=== PATIENT | male | born 1965 | race African-American/Black ===

== ENCOUNTER → 2017-01-17 | Outpatient (CLI) | payer MEDICAID ==
[~2017-01-17] MED LIST: AC325T; AC500T; ACET325T49 PO; ALB0.5V; ALBU0.8322 IH; ALBU17AE23 IH; ALBU2.5V4; CLN.2T; CLN.2T PO; FERR-57; FLT22013 INH; FLVX50T; FRS325T; GLBR2.5T; INSA10V; INSU100C SQ; INSU100I10 SQ; INSU100V13; INSU100V6; INSU100V8; LEVO500T69 PO; LISI-594 PO; LNS30CCR; LNS30CCR PO; LUVOX; METF-380 PO; MPR22T TP; MTF500TCR; MTP25TSR PO; PGLT30T; QTP100T PO; QTP200T; RIOMET; RISP1TAB19 PO; VALP250S14 PO; VLP250480; Z-PAK
--- NOTE | 2017-01-17 09:55 | Diagnostic Imaging Report ---
3 views of the left shoulder. INDICATION: Left shoulder pain. FINDINGS: There is no fracture, dislocation or radiopaque foreign body. The acromioclavicular and the glenohumeral joints appear unremarkable. The shoulder orientation appears to be rotated superiorly and laterally, which appears to be secondary to the position of the scapula. Correlate clinically. IMPRESSION: No fracture seen. Superior and lateral rotated position of the scapula is seen. Dictated by: Dictated on workstation # [id number]
--- NOTE | 2017-01-17 09:58 | Diagnostic Imaging Report ---
EXAMINATION: Two views of the left humerus. INDICATION: Pain. FINDINGS: There is a focal ossification measuring 4 mm which appears to have corticated margins near the rotator cuff insertion. This could be secondary to rotator cuff tendinopathy or injury. No acute fracture is seen otherwise in the humerus. No subluxation or dislocation. IMPRESSION: 4 mm ossification near the rotator cuff insertion may relate to rotator cuff tendinopathy or sequela of rotator cuff injury. This could be better evaluated with a shoulder MRI, if needed. Dictated by: Dictated on workstation # [id number]
--- NOTE | 2017-01-17 10:08 | Diagnostic Imaging Report ---
2 views of the left clavicle. INDICATION: Pain around the left clavicle. FINDINGS: There is no fracture, dislocation or radiopaque foreign body. There is apparent slight rotation superiorly and laterally of the scapula and shoulder. It is uncertain if this is positional or related to a deformity. Correlate clinically. IMPRESSION: No fracture seen. Dictated by: Dictated on workstation # [id number]
== END ==
LOC: RAD 09:21
PROVIDERS: ATTEND Family Medicine
DX: M25.512 Pain in left shoulder (principal); M25.812 Other specified joint disorders, left shoulder
CPT/HCPCS: 73000; 73030; 73060

== ENCOUNTER → 2017-08-16 | Outpatient (CLI) | payer MEDICARE, MEDICAID ==
[~2017-08-16] VITALS: Ht 162.6 cm; Wt 81.6 kg
[~2017-08-16] MED LIST changes: +REGADENOSON 0.4 MG/5 ML SYR (LEXISCAN) IV ONE
[2017-08-16] MEDS: CATHETER FLUSH 10 ML SYR IV PRN ×2 (08:55→09:45)
[2017-08-16 09:42] VITALS: BP 173/102
--- NOTE | 2017-08-16 21:25 | STRESS TEST ---
DATE OF SERVICE: 08/16/2017 PHARMACOLOGICAL NUCLEAR STRESS TEST REPORT PRIMARY PHYSICIAN: Therese Villalpando M.D. DIAGNOSES: Diabetes, hypertension, mental retardation, hyperlipidemia. PROCEDURE DETAILS: The patient was brought to the stress lab after informed consent was taken. Please note that this patient also has significant mental retardation. Therefore, he could not cooperate during nuclear imaging by keeping his arms above his head. Lexiscan nuclear stress test was performed. A 0.4 mg of Lexiscan was given. The patient had normal sinus rhythm on baseline EKG. Blood pressure was 149/108 mmHg. Maximum heart rate was 155 BPM and blood pressure was 179/87 mmHg. The patient did not complain of any obvious chest pain. There were no arrhythmias or EKG changes. 10.34 mCi of Myoview were given for rest imaging and 29.6 mCi of Myoview were given for stress imaging. As noted earlier, the patient kept his arms on the side; therefore, the images were not of the greatest quality. TID 0.9, EF 82%. There is a mild mid anterior reversible defect noted. Normal wall motion is noted. IMPRESSION/CONCLUSION: 1. Pharmacological stress test was negative for ischemia. 2. There is a mild mid anterior reversible defect noted. Although there are no significant wall motion abnormalities, clinical correlation is recommended. Job ID: [id number] DocumentID: [id number] Dictated Date: 08/16/2017 14:07:46 Sample Case Porter Date: 08/16/2017 15:14:36 Dictated By: KARELY GREENFIELD MD
== END ==
LOC: CARD 08:40
PROVIDERS: ATTEND Internal Medicine Interventional Cardiology
DX: E13.9 Other specified diabetes mellitus without complications (principal); E78.5 Hyperlipidemia, unspecified; I10 Essential (primary) hypertension; F79 Unspecified intellectual disabilities; D64.9 Anemia, unspecified
CPT/HCPCS: 78452; 93017

== ENCOUNTER 2018-05-03 13:56 | Emergency (ER) | payer MEDICARE, MEDICAID ==
[~2018-05-03] VITALS: Ht 157.5 cm; Wt 77.1 kg
[~2018-05-03 13:56] MED LIST changes: -REGADENOSON 0.4 MG/5 ML SYR (LEXISCAN) IV ONE
[2018-05-03] MEDS ORDERED: CATHETER FLUSH 10 ML SYR IV ONE (13:58)
[2018-05-03] MEDS ORDERED: EPINEPHrine 0.1 MG/ML 10 ML (HOSPIRA) SYR INJ ONE (13:58)
--- NOTE | 2018-05-03 14:18 | ED CPR ---
HPI-CPR General Chief Complaint: Code Blue Stated Complaint: CODE BLUE Source of Information: EMS History of Present Illness Date Seen by Provider: May 03, 2018 Time Seen by Provider: 14:13 Initial Comments This is a 52-year-old male presents after cardiac arrest. EMS was called and the patient was found to be in PEA. Despite all ACLS drugs the patient failed to respond and was transported to the emergency department. The patient suffers from Down syndrome and diabetes. Patient's blood sugar in the field was 140. The patient was not directly observed at the time he rested but other people in the house heard him fall to the floor and activated EMS. Allergies and Home Medications Allergies Coded Allergies: NKANo Known Allergies (Verified Allergy, Unknown, 08/11/06) Uncoded Allergies: NKA (Allergy, Mild, 08/11/06) Home Medications Acetaminophen 325 Mg Tab, 325 MG PO EVERY 6-8 HOURS PRN, (Reported) NEEDED FOR PAIN Albuterol Sulfate 2.5 Mg/3 Ml Solution, 2.5 MG IH 3-4 TIMES DAILY PRN, (Reported ) NEEDED FOR ASTHMA Clonidine Hcl 0.2 Mg Tablet, 0.2 MG PO TID, (Reported) Fluticasone Propionate 1 Ea Aero, 2 PUFF INH BID, (Reported) Insulin Glargine,Hum.rec.anlog 300 Unit/3 Ml Insuln.pen, 22 UNITS SQ HS, ( Reported) Insulin Lispro 100 Unit/1 Ml Cartridge, 5 UNITS SQ TID, (Reported) BEFORE MEALS Lansoprazole 30 Mg Cap, 30 MG PO DAILY, (Reported) 30 MINUTES BEFORE BREAKFAST Levofloxacin 500 Mg Tab, 1 EACH PO DAILY, (Reported) Lisinopril 5 Mg Tablet, 5 MG PO HS, (Reported) Metformin Hcl 1,000 Mg Tablet, 1,000 MG PO BID, (Reported) Metoprolol Succinate 25 Mg Tab, 25 MG PO DAILY, (Reported) Mupirocin 22 Gm Tube, TP BID, (Reported) APPLY TO BLISTERS ON THIGHS Quetiapine Fumarate 100 Mg Tablet, 100 MG PO BID, (Reported) Risperidone 1 Mg Tablet, 1 MG PO BID, (Reported) Valproic Acid 250 Mg/5 Ml Syrup, 22 ML PO TID, (Reported) Patient Home Medication List Home Medication List Reviewed: Yes Review of Systems Constitutional: no symptoms reported EENTM: No Symptoms Reported Respiratory: No Symptoms Reported Cardiovascular: No Symptoms Reported Gastrointestinal: No Symptoms Reported Genitourinary: No Symptoms Reported Musculoskeletal: no symptoms reported Skin: no symptoms reported Psychiatric/Neurological: No Symptoms Reported Endocrine: No Symptoms Reported Hematologic/Lymphatic: No Symptoms Reported Past Ujzsikl-Nzibfw-Qotwba Hx Past Med/Social Hx: Reviewed Nursing Past Med/Soc Hx Immunizations Up To Date Date of Pneumonia Vaccine: Jun 12, 2013 Date of Influenza Vaccine: Jun 16, 2013 Seasonal Allergies Seasonal Allergies: Yes Past Medical History Asthma Reproductive Disorders: No Diabetes, Insulin dep Physical Exam Vital Signs Capillary Refill : Height, Weight, BMI Height: 5'4.00" Weight: 180lbs. 0.0oz. 81.869519vd; 30.9 BMI Method: General Appearance: Other (the patient is in cardiac arrest) HEENT: Normal ENT Inspection, Other (an endotracheal tube is in place.) Neck: Normal Inspection Respiratory: Other (with bagging the patient's lungs are clear.) Cardiovascular: Other (no heartbeat was auscultated.) Gastrointestinal: Other (patient's abdomen was distended from bagging.) Extremity: Normal Inspection Neurologic/Psychiatric: Other (patient is unresponsive to pain or verbal stimuli) Skin: Normal Color, Warm/Dry Progress/Results/Core Measures Progress Progress Note : Time: 14:17 Progress Note The patient was in PEA and received an amp of epinephrine. Chest compressions and ventilations continued. Ultrasound of the patient's heart demonstrated no active cardiac activity despite a slow wide complex on hall monitor. After a all attempts at resuscitation were ineffective the patient was pronounced at 1359. Dr. Alexander call the emergency department and stated that she would sign best to get. Departure Impression Primary Impression: Cardiac arrest Disposition: 20 Condition: Departure-Patient Inst. Referrals: KAREL CARBAJAL MD (PCP/Family) Primary Care Physician ABNER CHEN MD May 03, 2018 14:18
--- OUTSIDE RECORDS SUMMARY | 2018-05-03 19:05 | XMS REPORT | Continuity of Care Document ---
Author Author [facility] Organization [facility] Address Unknown Phone Unavailable Care Team Providers Care Transfer Specialist Name Role Phone ELYSIA FRY DO PP Insurance Providers Payer Name Policy Number Subscriber Name [facility] [id number] Tyler Culver Self / Same As Patient Advance Directives Directive Response Recorded Date Advance Directives N 06/10/13 11:15pm Organ Donor Y 06/10/13 11:15pm Problems No Known Problems or Medical conditions. Social History History Response Recorded Date/Time Alcohol Use Denies Use 06/10/13 11:15pm Recreational Drug Use N 06/10/13 11:15pm Allergies, Adverse Reactions, Alerts Allergen Type Severity Reaction Last Updated NKANo Known Allergies Allergy Unknown 08/11/06 NKA Allergy Mild 08/11/06 Medications Medication Dose Units Route Sig Qty Days Levofloxacin (Levaquin 500 Mg) 1 Each PO DAILY 5 Metformin HCl (Metformin 1000 Mg) 1000 Mg PO BID Lisinopril (Zestril) 5 Mg PO HS Insulin Glargine (Lantus Solostar) 22 Units SQ HS Quetiapine Fumarate (Seroquel 100 Mg) 100 Mg PO BID Mupirocin (Bactroban Ointment 22 Gm) TP BID Fluticasone Propionate (Flovent Hfa 220 Mcg) 2 Puff INH BID Albuterol Sulfate (Proventil 2.5 Mg/3 Ml Ns) 2.5 Mg IH 3-4 TIMES DAILY PRN Acetaminophen (Tylenol Tab) 325 Mg PO EVERY 6-8 HOURS PRN Valproic Acid 22 Ml PO TID Lansoprazole (Prevacid) 30 Mg PO DAILY Insulin Lispro (Humalog) 5 Units SQ TID Risperidone (Risperdal) 1 Mg PO BID Metoprolol Succinate (Toprol Xl) 25 Mg PO DAILY Clonidine HCl (Catapres) 0.2 Mg PO TID Ferrous Sulfate Insulin Regular, Human (Novolin R) [Riomet] Immunizations Name Given Type Date of Pneumonia Vaccine 06/12/13 H Date of Influenza Vaccine 06/16/13 H pneumococcal polysaccharide PPV23 06/12/13 A influenza, split (incl. purified surface antigen) 06/12/13 A pneumococcal polysaccharide PPV23 06/12/13 A influenza, split (incl. purified surface antigen) 06/12/13 A Response Recorded Date/Time Status not known Unknown Results Test Date Result Interp. Ref. Range Activated Partial Thromboplast Time August 28, 2006 10: 47am 28 SEC N 24-35 Alanine Aminotransferase (ALT/SGPT) June 10, 2013 7: 58pm 39 U/L N 30-65 Albumin June 10, 2013 7:58pm 2.3 G/ DL L 3.4-5.0 Alkaline Phosphatase June 10, 2013 7:58pm 144 U/L H 50-136 Carlos Alberto Test June 10, 2013 8:26pm POSITIVE - Anisocytosis June 10, 2013 7:58pm SLIGHT - Arterial Blood Base Excess June 10, 2013 8:26pm -2.8 MMOL/L L -2.5-2.5 Arterial Blood HCO3 June 10, 2013 8:26pm 22 MMOL/L L 23-27 Arterial Blood Oxygen Saturation June 10, 2013 8:26pm 92 % L 94-100 Arterial Blood Partial Pressure CO2 June 10, 2013 8: 26pm 41 MMHG N 35-45 Arterial Blood Partial Pressure O2 June 10, 2013 8: 26pm 68 MMHG L 79-93 Arterial Blood Total CO2 June 10, 2013 8:26pm 23.4 MMOL/L N 21.0-31.0 Arterial Blood pH June 10, 2013 8:26pm 7.36 L 7.37-7.43 Aspartate Amino Transf (AST/SGOT) June 10, 2013 7:58pm 29 U/L N 15-37 Atypical Lymphocytes June 10, 2013 7:58pm 0 % - BUN/Creatinine Ratio June 10, 2013 7:58pm 15 - Band Neutrophils June 10, 2013 7:58pm 6 % - Basophils # (Auto) June 10, 2013 7:58pm 0.0 10^3/uL N 0.0-0.1 Basophils % (Manual) June 10, 2013 7:58pm 0 % - Basophils (%) (Auto) June 10, 2013 7:58pm 0 % N 0-10 Blood Gas Inspired Oxygen June 10, 2013 8:26pm 2L - Blood Gas Patient Temperature June 10, 2013 8:26pm 100.4 - Blood Gas Puncture Site June 10, 2013 8:26pm RIGHT RADIAL - Blood Gas Ventilator Setting June 10, 2013 8:26pm NO - Blood Urea Nitrogen June 10, 2013 7:58pm 20 MG/DL H 7-18 C-Reactive Protein June 10, 2013 7:58pm 1.5 MG/DL H 0.2-0.9 C-Reactive Protein, Quantitative August 10, 2006 10:45pm 0.7 MG/DL - Calcium Level June 10, 2013 7:58pm 7.9 MG/DL L 8.5-10.1 Carbon Dioxide Level June 10, 2013 7:58pm 26 MMOL/L N 21-32 Chloride Level June 10, 2013 7:58pm 103 MMOL/L N 101-110 Cholesterol Level September 04, 2006 5:34am 147 MG/DL N -200 Creatinine June 10, 2013 7:58pm 1.3 MG/DL N 0.6-1.3 D-Dimer March 26, 2009 12:55pm 0.90 UG/ ML H 0.00-0.49 Elliptocytes August 18, 2006 7:00am Slight - Eosinophils # (Auto) June 10, 2013 7:58pm 0.0 10^3/uL N 0.0-0.3 Eosinophils % (Manual) June 10, 2013 7:58pm 0 % - Eosinophils (%) (Auto) June 10, 2013 7:58pm 0 % N 0-10 Erythrocyte Sedimentation Rate August 10, 2006 10:45pm 97 MM/HR H 0-15 Glucose Level June 10, 2013 7:58pm 254 MG/DL H 74-106 HDL Cholesterol September 04, 2006 5:34am 26 MG/ML L 35-60 Hematocrit June 10, 2013 7:58pm 40 % N 40-54 Hemoglobin June 10, 2013 7:58pm 13.0 G/DL L 13.3-17.7 Hemoglobin A1c November 27, 2009 6:30am 7.8 H % - Hypochromasia June 10, 2013 7:58pm SLIGHT - LDL Cholesterol September 04, 2006 5:34am 103 MG/DL N 0-129 Lymphocytes # (Auto) June 10, 2013 7:58pm 2.1 X 10^3 N 1.0-4.0 Lymphocytes % (Manual) June 10, 2013 7:58pm 28 % - Lymphocytes (%) (Auto) June 10, 2013 7:58pm 18 % N 12-44 Macrocytosis November 26, 2006 6:25am Slight - Magnesium Level June 10, 2013 7:58pm 1.2 MG/DL L 1.8-2.4 Mean Corpuscular Hemoglobin June 10, 2013 7:58pm 25 PG N 25-34 Mean Corpuscular Hemoglobin Concent June 10, 2013 7: 58pm 33 G/DL N 32-36 Mean Corpuscular Volume June 10, 2013 7:58pm 77 FL L 80-99 Mean Platelet Volume June 10, 2013 7:58pm 10.9 FL H 7.4-10.4 Metamyelocytes % November 26, 2006 6:25am 3 - Microcytosis June 10, 2013 7:58pm SLIGHT - Monocytes # (Auto) June 10, 2013 7:58pm 2.3 X 10^3 H 0.0-1.0 Monocytes % (Manual) June 10, 2013 7:58pm 4 % - Monocytes (%) (Auto) June 10, 2013 7:58pm 19 % H 0-12 Myelocytes % November 26, 2006 6:25am 1 - Myoglobin March 26, 2009 12:55pm 25 UG/L N 10-92 Neutrophils # (Auto) June 10, 2013 7:58pm 7.4 X 10^3 N 1.8-7.8 Neutrophils % (Manual) June 10, 2013 7:58pm 57 % - Neutrophils (%) (Auto) June 10, 2013 7:58pm 63 % N 42-75 Nucleated Red Blood Cells June 10, 2013 7:58pm 1 - Platelet Count June 10, 2013 7:58pm 154 10^3/uL N 130-400 Poikilocytosis November 30, 2009 8:38am SLIGHT - Polychromasia November 30, 2009 8:38am SLIGHT - Potassium Level June 10, 2013 7:58pm 4.9 MMOL/L N 3.6-5.0 Prothromb Time International Ratio August 27, 2006 2:40pm 1.0 N 0.8-1.4 Prothrombin Time August 27, 2006 2:40pm 13.2 SEC N 12.2-14.7 Reactive Lymphocytes June 10, 2013 7:58pm 5 % - Red Blood Count June 10, 2013 7:58pm 5.14 10^6/uL N 4.35-5.85 Red Cell Distribution Width June 10, 2013 7:58pm 19.0 % H 10.0-14.5 Sodium Level June 10, 2013 7:58pm 136 MMOL/L N 135-145 Spherocytes August 18, 2006 7:00am Moderate - Stomatocytes November 30, 2009 8:38am SLIGHT - Stool Occult Blood August 28, 2006 4:30pm Positive - Target Cells November 30, 2009 8:38am SLIGHT - Thyroid Stimulating Hormone (TSH) August 27, 2006 2:40pm 1.03 UIU/ML N 0.34- 5.60 Total Bilirubin June 10, 2013 7:58pm 0.2 MG/DL N 0.0-1.0 Total Protein June 10, 2013 7:58pm 6.4 G/DL N 6.4-8.2 Toxic Granulation December 02, 2006 7:26am 1 + - Triglycerides Level September 04, 2006 5:34am 88 MG/DL N 30.0-150.0 Troponin I March 26, 2009 12:55pm < 0.10 MG/ML 0.00-0.10 Urine Bacteria September 03, 2006 4:55pm Negative - Urine Bilirubin September 03, 2006 4:55pm Negative - Urine Casts September 03, 2006 4:55pm None - Urine Clarity September 03, 2006 4:55pm Slightly cloudy - Urine Color September 03, 2006 4:55pm Yellow - Urine Crystals September 03, 2006 4:55pm None - Urine Culture Indicated September 03, 2006 4:55pm No - Urine Glucose (UA) September 03, 2006 4:55pm Negative - Urine Ketones September 03, 2006 4:55pm Negative - Urine Leukocyte Esterase September 03, 2006 4:55pm Trace H - Urine Mucus September 03, 2006 4:55pm Negative - Urine Nitrate September 03, 2006 4:55pm Negative - Urine Protein September 03, 2006 4:55pm Negative - Urine RBC September 03, 2006 4:55pm Tntc /HPF H - Urine Specific [place] September 03, 2006 4:55pm 1.015 L - Urine Squamous Epithelial Cells September 03, 2006 4:55pm 0-2 - Urine Urobilinogen September 03, 2006 4:55pm Normal MG/DL - Urine WBC September 03, 2006 4:55pm 0-2 / HPF - Urine pH September 03, 2006 4:55pm 7.0 - VLDL Cholesterol September 04, 2006 5:34am 18 MG/DL N 5-40 Valproic Acid (Depakene) Level November 26, 2009 10:21pm 99.3 MCG/ML N 50.0-100.0 White Blood Count June 10, 2013 7:58pm 11.8 10^3/uL H 4.3-11.0 Glucometer December 01, 2009 10:42am 258 MG /DL H 70-110 Lab Scanned Report March 26, 2009 12:33pm Referred Lab Report [id number] - Smear Scan June 10, 2013 7:58pm - Estimat Glomerular Filtration Rate June 10, 2013 7: 58pm > 60 - Blood Morphology Comment November 27, 2009 6:30am NORMAL - Creatine Kinase March 26, 2009 12:55pm 139 mg/dl N 21-170 Cardiac Panel Pathologist Review March 26, 2009 12:55pm SEE CARDIAC PATH REV - Procedures Procedure Code Date OP RED-INT FIX TIB/FIBUL 79.36 08/11/06 REMOVAL OF SUPPORT IMPLANT 29760 REMOVAL OF SUPPORT IMPLANT 09095 REMOVAL OF KNEECAP 25077 08/27/06 ANESTH KNEE AREA PROCEDURE [id number] REMOVE INT FIX-PATELLA 78.66 09/06/06 PARTIAL PATELLECTOMY 77.86 09/06/06 ESOPHAGOGASTRODUODENOSCOPY [EGD] W/CLOSED BIOPSY 45.16 08/28/06 Blood Culture 11/22/06 Influenza Types A,B Antigen (AALIYAH) 11/26 Encounters Encounter Location Date/Time Discharged Inpatient [facility] 10:30pm Departed Emergency Room [facility] 12 :00am
--- OUTSIDE RECORDS SUMMARY | 2018-05-03 19:05 | XMS REPORT ---
Author Author LESTER ESPINOSA Organization [facility] Address [address] [place] [address] Phone Unavailable Care Team Providers Care All Around Gear Machine Operator Name Role Phone LESTER ESPINOSA Unavailable Unavailable PROBLEMS Unknown Problems ALLERGIES Substance Reaction Event Type Date Status LACTOSE Unknown Non Drug Allergy Dec, Active ENCOUNTERS Encounter Location Date Diagnosis [facility] [id number] [place], [place] [id number] Dec, Dental examination Z01.20 IMMUNIZATIONS No Known Immunizations SOCIAL HISTORY Never Assessed REASON FOR VISIT ADULT OUTREACH [facility] PLAN OF CARE Activity Details Follow Up 3 Months Reason:ON SITE RECALL VITAL SIGNS MEDICATIONS Medication Instructions Dosage Frequency Start Date End Date Duration Status NovoLog Active Glucophage Active Benztropine Mesylate Active Ferrous Sulfate Active toprol Active Symbicort Active Lantus SoloStar Active Lisinopril Active nexium Active Risperdal Active Catapres Active Valproic Acid Active Seroquel Active RESULTS No Results PROCEDURES Procedure Date Ordered Result Body Site SCREENING OF A PATIENT December 27, 2017 Billing Notes on claim December 27, 2017 INSTRUCTIONS MEDICATIONS ADMINISTERED No Known Medications MEDICAL (GENERAL) HISTORY Type Description Date Medical History HBP, DIABETES TYPE NOT SPECIFIED, ANEMIA Medical History ASTHMA, GLAUCOMA,GERD, GASTROINTESTIANAL ULCER
--- OUTSIDE RECORDS SUMMARY | 2018-05-03 19:06 | XMS REPORT | Continuity of Care Document ---
Author Author [facility] Organization [facility] Address Unknown Phone Unavailable Allergies Active Description Code Type Severity Reaction Onset Reported/Identified Relationship to Patient Clinical Status Yes COCKROACH ANITGENS UNKNOWN UNKNOWN Yes DUST MITES UNKNOWN UNKNOWN Yes MILK UNKNOWN UNKNOWN Yes NO KNOWN DRUG ALLERGIES UNKNOWN NO KNOWN DRUG ALLERG Yes NKA NKA Mild N/A 08/11/2006 Yes NKANo Known Allergies NKA Miscellaneous Allergy Unknown N/A 08/11/2006 Medications Medication Packaging Start Date Stop Date Route Dosage Sig ACETAMINOPHEN TAB 500 MG (TYLENOL) MG 09/11/2017 09/11/2017 PRN ONCE NORMAL SALINE 1000CC IV BAG INJ 0.9 % (NS 1000CC IV BAG) ml 09/11/2017 09/26/2017 CONTINUOUSEVERY 0 Hour IPRATROPIUM/ALBUTEROL INH SOLN (DUO-NEB INH SOLN) MLS 09/11/2017 09/11/2017 ONCE&1340 NORMAL SALINE 50CC IV BAG INJ (NS 50CC MINI-BAG) ml 09/11/2017 09/11/2017 ONCE&1427 LACTATED RINGERS 1000CC IV BAG INJ ml 09/11/2017 09/11/2017 ONCE&1427 Valproic acid oral solution 250mg/5cc (Depakote) MG 09/11/2017 09/11/2017 ONCE&1454 ACETAMINOPHEN ORAL TABLET 325mg(Tylenol) MG 09/11/2017 09/18/2017 PRN EVERY 6 Hour NORMAL SALINE 1000CC IV BAG INJ 0.9 % (NS 1000CC IV BAG) ml 09/11/2017 09/26/2017 CONTINUOUSEVERY 0 Hour LEVALBUTEROL LIQ 1.25 MG/3ML (XOPENEX) MG 09/11/2017 09/18/2017 QID&0600,1100,1600,2100 LEVALBUTEROL LIQ 0.63 MG/3CC (XOPENEX) MG 09/11/2017 09/18/2017 PRN Q4H HYDROCODONE/APAP 5MG/325MG TAB 5 MG/325MG (SHAYY-TAB 5/325) TAB 09/11/2017 09/21/2017 PRN Q4H LEVOFLOXACIN PREMIX IV BAG INJ 500 MG/100CC (LEVAQUIN IV PREMIX 100CC BAG) MG 09/11/2017 09/17/2017 Daily&1800 QUETIAPINE TAB 100 MG (SEROQUEL) MG 09/11/2017 09/18/2017 BID&0800,2000 SIMVASTATIN TAB 10 MG (ZOCOR) MG 09/17/2017 QPM&2000 BENZTROPINE TAB 1 MG (COGENTIN) MG 09/11/2017 09/18/2017 BID&0800,1999 METFORMIN TAB 500 MG (GLUCOPHAGE) MG 09/11/2017 09/18/2017 BID&0800,2000 CLONIDINE TAB 0.1 MG (CATAPRES) MG 09/11/2017 09/18/2017 TID&0800,1400,2000 RISPERIDONE TAB 1 MG (RISPERDAL) MG 09/11/2017 09/18/2017 BID&0800,2000 METOPROLOL TAB 25 MG (LOPRESSOR) MG 09/11/2017 09/25/2017 BID&0800,2000 CEFEPIME PREMIX BAG IV 1 GM/50CC (MAXIPIME PREMIX BAG) GM 09/11/2017 09/18/2017 BID&0800,2000 BUDESONIDE/FORMOTEROL INH 160 /4.5MCG (SYMBICORT) PUFF 09/11/2017 09/18/2017 BID&0800,2000 INSULIN DETEMIR PEN INJ 100 UNITS/CC (LEVEMIR FLEXPEN) UNITS 09/11/2017 10/10/2017 QPM&2000 Valproic acid oral solution 250mg/5cc (Depakote) MG 09/11/2017 10/11/2017 TID&0800,1400,2000 LISINOPRIL TAB 5 MG (ZESTRIL) MG 09/17/2017 QHS&2100 METHYLPREDNISOLONE VIAL INJ 125 MG/2CC (SOLU-MEDROL VIAL) MG 09/12/2017 09/16/2017 Q8H&0600,1400,2200 INSULIN ASPART PEN INJ 100 UNITS/CC (NOVOLOG FLEXPEN) UNITS 09/12/2017 10/11/2017 AC&0630,1130,1630 Heparin, FLUSH IV syringe 500 units UNITS 09/12/2017 09/21/2017 BID&0800,2000 IPRATROPIUM BR LIQ 0.02 % (ATROVENT)0.5mg MG 09/12/2017 09/18/2017 QID&0800,1200,1700,2200 LISINOPRIL TAB 5 MG (ZESTRIL) MG 09/18/2017 Daily&0900 METOPROLOL XR TAB 25 MG (TOPROL XL) MG 09/12/2017 09/18/2017 Daily&0900 ASA 81MG ENTERIC COATED TAB 81 MG (BABY ASPIRIN EC) MG 09/12/2017 09/25/2017 Daily&0900 ENOXAPARIN SYRINGE INJ 30 MG (LOVENOX SYRINGE) MG 09/12/2017 09/21/2017 Daily&0900 AMLODIPINE TAB 5 MG (NORVASC) MG 09/25/2017 Daily&0900 Diltiazem 120mg,extended release cap (CARDIZEM) MG 09/12/2017 10/11/2017 Daily&0900 FERROUS SULFATE TAB 325 MG (FEOSOL) MG 09/12/2017 09/18/2017 Daily&0900 MultiVits (Thera M Plus) (umjwqbsy-ghza-mxbhrfy) oral tablet TAB 09/12/2017 10/11/2017 Daily&0900 FISH OIL CAP CAP 1000 MG (OMEGA 3) MG 09/12/2017 09/25/2017 Daily&0900 CALCIUM 600MG W VIT D TAB 600 MG (OSCAL/W VIT D) MG 09/12/2017 09/25/2017 Daily&0900 PANTOPAZOLE VIAL INJ 40 MG (PROTONIX IV) MG 09/12/2017 09/21/2017 Daily&0900 IPRATROPIUM BR LIQ 0.02 % (ATROVENT)0.5mg MG 09/12/2017 09/19/2017 QID&0600,1100,1600,2100 LORAZEPAM TAB 0.5 MG (ATIVAN) MG 09/19/2017 PRN Q6H METHYLPREDNISOLONE VIAL INJ 40 MG/CC (SOLU-MEDROL VIAL) MG 09/12/2017 09/17/2017 Q8H&0600,1400,2200 Metoprolol IV soln 5mg/5cc vial (Lopressor) MG 09/12/2017 09/12/2017 ONCE&1415 RANITIDINE TAB 150 MG (ZANTAC) MG 09/12/2017 09/19/2017 BID&0800,2000 METHYLPREDNISOLONE VIAL INJ 125 MG/2CC (SOLU-MEDROL VIAL) MG 09/13/2017 09/17/2017 BID&0800,2000 METOPROLOL-XL TAB 50 MG (TOPROL XL) MG 09/13/2017 09/19/2017 Daily&0900 INSULIN ASPART PEN INJ 100 UNITS/CC (NOVOLOG FLEXPEN) 09/13/2017 10/13/2017 ACHS&0630,1130,1630,2100 PREDNISONE TAB 20 MG (DELTASONE) MG 09/14/2017 09/14/2017 ONCE&0850 LACTATED RINGERS 1000CC IV BAG INJ ml 05/01/2018 05/08/2018 CONTINUOUSEVERY 0 Hour Problems Date Dx Coded Attending Type Code Diagnosis Diagnosed By 06/17/2013 ELYSIA FRY DO Ot 250.00 DIAB LIZA WO COMPL, TYPE II OR UNSPEC TY 06/17/2013 ELYSIA FRY DO Ot 318.1 SEVERE INTELLECTUAL DISABILITIES 06/17/2013 ELYSIA FRY DO Ot 486 PNEUMONIA, ORGANISM NOS 06/17/2013 ELYSIA FRY DO Ot 493.90 ASTHMA, UNSPECIFIED 06/17/2013 ELYSIA FRY DO Ot V03.82 PROPHYLACTIC VACC AGAINST STREPTOCOCCUS 06/17/2013 ELYSIA FRY DO Ot V04.81 ND FOR PROPHYLACTIC VACCIN AND INOCULATI 01/18/2017 KAREL CARBAJAL MD Ot M25.512 PAIN IN LEFT SHOULDER 01/18/2017 KAREL CARBAJAL MD Ot M25.812 OTHER SPECIFIED JOINT DISORDERS, LEFT 01/31/2017 KAREL CARBAJAL MD Ot M25.512 PAIN IN LEFT SHOULDER 01/31/2017 KAREL CARBAJAL MD Ot M25.812 OTHER SPECIFIED JOINT DISORDERS, LEFT 04/06/2017 KAREL CARBAJAL MD Ot M25.512 PAIN IN LEFT SHOULDER 04/06/2017 KAREL CARBAJAL MD Ot M25.812 OTHER SPECIFIED JOINT DISORDERS, LEFT 04/06/2017 CARBAJAL MD, KAREL L Ot M25.512 PAIN IN LEFT SHOULDER 04/06/2017 SOLOMON RAPP, KAREL L Ot M25.812 OTHER SPECIFIED JOINT DISORDERS, LEFT SH 04/26/2017 SOLOMON RAPP, KAREL L Ot M25.512 PAIN IN LEFT SHOULDER 04/26/2017 SOLOMON RAPP, KAREL L Ot M25.812 OTHER SPECIFIED JOINT DISORDERS, LEFT SH 08/16/2017 AKILAHDER DO, ELYSIA Hopkins Ot 786.2 COUGH 08/16/2017 ANG DO, ELYSIA Hopkins Ot 959.7 LOWER LEG INJURY NOS 08/16/2017 ANG DO, ELYSIA Hopkins Ot E000.8 OTHER EXTERNAL CAUSE STATUS 08/16/2017 ANG GARZA, ELYSIA Hopkins Ot E849.0 ACCIDENT IN HOME 08/16/2017 ELYSIA FRY DO Ot E917.3 FURNIT W/O SUB FALL 08/16/2017 SOLOMON RAPP, KAREL Hancock Ot M25.512 PAIN IN LEFT SHOULDER 08/16/2017 SOLOMON RAPP, KAREL Hancock Ot M25.812 OTHER SPECIFIED JOINT DISORDERS, LEFT SH 09/06/2017 Stacey GREENFIELD MD Ot D64.9 ANEMIA, UNSPECIFIED 09/06/2017 Stacey GREENFIELD MD Ot E13.9 OTHER SPECIFIED DIABETES MELLITUS WITHOU 09/06/2017 Stacey GREENFIELD MD Ot E78.5 HYPERLIPIDEMIA, UNSPECIFIED 09/06/2017 Stacey GREENFIELD MD Ot F79 UNSPECIFIED INTELLECTUAL DISABILITIES 09/06/2017 Stacey GREENFIELD MD Ot I10 ESSENTIAL (PRIMARY) HYPERTENSION 09/13/2017 Stacey GREENFIELD MD Ot D64.9 ANEMIA, UNSPECIFIED 09/13/2017 Stacey GREENFIELD MD Ot E13.9 OTHER SPECIFIED DIABETES MELLITUS WITHOU 09/13/2017 Stacey GREENFIELD MD Ot E78.5 HYPERLIPIDEMIA, UNSPECIFIED 09/13/2017 Stacey GREENFIELD MD Ot F79 UNSPECIFIED INTELLECTUAL DISABILITIES 09/13/2017 Stacey GREENFILED MD Ot I10 ESSENTIAL (PRIMARY) HYPERTENSION 09/14/2017 KAREL CARBAJAL W 250.00 DIABETES MELLITUS WITHOUT MENTION OF COMPLICATION, TYPE II OR UNSPECIFIED TYPE , NOT STATED UNCONTROLLED 09/14/2017 KAREL CARBAJAL 272.4 OTHER AND UNSPECIFIED HYPERLIPIDEMIA 09/14/2017 KAREL CARBAJAL 307.9 OTHER AND UNSPECIFIED SPECIAL SYMPTOMS OR SYNDROMES, NOT ELSEWHERE CLASSIFIED 09/14/2017 KAREL CARBAJAL 369.63 ONE EYE: TOTAL VISION IMPAIRMENT; OTHER EYE: NORMAL VISION 09/14/2017 KAREL CARBAJAL 401.0 09/14/2017 KAREL CARBAJAL A 466.0 09/14/2017 KAREL CARBAJAL 786.05 09/14/2017 KAREL CARBAJAL E11.9 TYPE 2 DIABETES MELLITUS WITHOUT COMPLICATIONS 09/14/2017 KAREL CARBAJAL E78.4 OTHER HYPERLIPIDEMIA 09/14/2017 KAREL CARBAJAL H54.0X33 BLINDNESS R EYE CATEGORY 3, BLINDNESS LEFT EYE CATEGORY 3 09/14/2017 KAREL CARBAJAL I10 ESSENTIAL (PRIMARY) HYPERTENSION 09/14/2017 KAREL CARBAJAL J20.9 ACUTE BRONCHITIS, UNSPECIFIED 09/14/2017 KAREL CARBAJAL R06.02 SHORTNESS OF BREATH 09/14/2017 KAREL CARBAJAL R45.1 RESTLESSNESS AND AGITATION Procedures There is no data. Results Test Result Range Valproic Acid - 08/28/16 09:40 Valproic Acid 85.4 ug/mL 55.0-105.0 Comprehensive Metabolic Panel - 09/11/17 12:07 Albumin 3.0 g/dL 3.6-5.1 ALP 85 U/L 35-130 ALT 20 U/L 6-45 Anion Gap 19 6-14 AST 38 U/L 2-40 BUN 21 mg/dL 5-25 Calcium 9.5 mg/dL 8.3-10.4 Chloride 101 mmol/L 95-114 CO2 24 mEq/L 22-33 Creat 1.37 mg/dL 0.50-1.50 eGFR 55 mL/min/1.73m2 >59 Globulin 3.9 g/dL 2.3-3.5 Glucose 183 mg/dL 70-110 Osmo 294 280-295 Potassium 4.7 mmol/L 3.5-5.3 Sodium 139 mmol/L 134-148 TBil 0.3 mg/dL 0.2-1.2 TP 6.9 g/dL 6.0-8.3 Blood Culture - 09/11/17 12:07 PRELIM CULTURE RESULTS Blood Culture Negative, No Growth Day 1 FINAL CULTURE RESULTS Blood Culture Negative, No Growth Day 5 MEDIA PLATED Setup at 12:34 on 09/11/2017 Blood Culture Media Position C45 CULTURE SOURCE Right Radial (From ABG) Blood Culture - 09/11/17 12:07 PRELIM CULTURE RESULTS Blood Culture Negative, No Growth Day 1 FINAL CULTURE RESULTS Blood Culture Negative, No Growth Day 5 MEDIA PLATED Setup at 12:34 on 09/11/2017 Blood Culture Media Position A13 CULTURE SOURCE Left AC Lactic Acid - 09/11/17 15:27 Lactic Acid 32.2 mg/dL 4.5-19.8 MRSA Screen - 09/11/17 16:39 FINAL CULTURE RESULTS MRSA Negative Nasal Culture MEDIA PLATED Setup at 16:57 on 09/11/2017 BMP - 09/12/17 05:38 Anion Gap 12 6-14 BUN 15 mg/dL 5-25 Calcium 8.6 mg/dL 8.3-10.4 Chloride 109 mmol/L 95-114 CO2 27 mEq/L 22-33 Creat 0.90 mg/dL 0.50-1.50 eGFR 89 mL/min/1.73m2 >59 Glucose 132 mg/dL 70-110 Osmo 300 280-295 Potassium 4.3 mmol/L 3.5-5.3 Sodium 144 mmol/L 134-148 D-Dimer - 09/12/17 14:18 DDimer 332.00 ng/mL 21.00-229.00 Protime - 05/01/18 07:56 INR 1.0 1.0-4.0 Protime 11.5 Sec 9.9-12.8 Encounters ACCT No. Visit Date/Time Discharge Status Pt. Type Provider Facility Loc./Unit Complaint [id number] 08/16/2017 08:40:00 08/16/2017 23:59:59 CLS Outpatient Stacey GREENFIELD MD [facility] CARD DIABETES [id number] 04/23/2017 16:16:00 04/23/2017 23:59:59 CLS Preadmit Stacey GREENFIELD MD [facility] CARD E13.9 [id number] 04/23/2017 16:11:00 04/23/2017 23:59:59 CLS Preadmit Stacey GREENFIELD MD [facility] CARD E13.9 [id number] 01/17/2017 09:21:00 01/17/2017 23:59:59 CLS Outpatient KAREL CARBAJAL MD [facility] RAD LT SHOULDER PAININJURY UNKNOWN [id number] 07/28/2013 14:14:00 07/28/2013 23:59:59 CLS Outpatient ELYSIA FRY DO [facility] RAD INJ AT HOME WELL REPEAT CXR [id number] 06/10/2013 22:30:00 06/17/2013 12:45:00 DIS Inpatient ELYSIA FRY DO [facility] 4TH L BASE PNEUMONIA [id number] 05/01/2018 07:13:00 05/01/2018 09:38:00 DIS Outpatient Jalen Rand [id number] 09/11/2017 11:40:00 09/14/2017 09:30:00 DIS Inpatient KAREL CARBAJAL [facility] ICU [id number] 04/05/2017 10:03:00 04/05/2017 23:59:00 DIS Outpatient Jalen Rand [id number] 01/17/2017 00:00:00 01/17/2017 23:59:00 DIS Outpatient KAREL CARBAJAL [id number] 08/28/2016 09:54:00 08/28/2016 23:59:00 DIS Outpatient KAREL CARBAJAL [id number] 09/11/2017 13:54:02 Document Registration
== END 2018-05-03 16:00 | disposition expired ==
LOC: EDUNIT# 13:56 → ER 13:57
DX: I46.9 Cardiac arrest, cause unspecified (principal); E11.9 Type 2 diabetes mellitus without complications; J45.909 Unspecified asthma, uncomplicated; Q90.9 Down syndrome, unspecified; Z79.51 Long term (current) use of inhaled steroids; Z79.4 Long term (current) use of insulin
CPT/HCPCS: 36680; 93041; 99291